=== PATIENT | female | born 1960 | race Caucasian/White ===

== ENCOUNTER 2025-03-12 15:19 | Emergency (ER) | payer SELFPAY ==
[~2025-03-12] VITALS: Ht 165.1 cm; Wt 90.0 kg
[2025-03-12 15:37] VITALS: BP 144/90; PULSE 105; RESP 18; TEMP 37.2; O2SAT 99
== END 2025-03-12 19:36 | disposition left against medical advice (07) ==
LOC: ER 15:19
DX: F41.9 Anxiety disorder, unspecified (principal)
CPT/HCPCS: 99281